=== PATIENT | female | born 1990 | race Caucasian/White ===

== ENCOUNTER 2021-01-21 17:02 | Emergency (ER) | payer OTHER ==
[~2021-01-21] VITALS: Ht 175.3 cm; Wt 127.0 kg
[2021-01-21] MEDS ORDERED: LEXAPRO 10 MG T10 M2 PO (17:08)
[2021-01-21] MEDS ORDERED: XANAX1 MG PO (17:08)
[2021-01-21] MEDS ORDERED: OMEPRAZOLE 20 M20 M1 PO (17:08)
[2021-01-21] MEDS ORDERED: TRAMADOL 50 MG50 MG PO (18:24)
[2021-01-21] MEDS ORDERED: IBUPROFEN 600600 M1 PO (18:24)
[2021-01-21 18:40] VITALS: BP 134/72
== END 2021-01-21 18:41 | disposition home or self-care (01) ==
LOC: M.ERS 17:02
DX: S93.402A Sprain of unspecified ligament of left ankle, initial encounter (principal); F41.9 Anxiety disorder, unspecified; Z90.710 Acquired absence of both cervix and uterus; Z79.899 Other long term (current) drug therapy; W19.XXXA Unspecified fall, initial encounter; Y93.89 Activity, other specified; Y92.89 Other specified places as the place of occurrence of the external cause; Y99.8 Other external cause status